=== PATIENT | female | born 1990 | race Caucasian/White ===

== ENCOUNTER 2020-09-19 09:30 | Outpatient (RCR) | payer OTHER, SELFPAY ==
--- NOTE | 2020-08-18 11:13 | PTOPEVAL ---
PHYSICAL THERAPY EVALUATION Thank you for referring Kaylee Concepcion to [facility].? Kaylee has a dx of ankylosing spondylitis and aquatic therapy ordered. The patient is scheduled to be seen for therapy? 2x/week for 4 weeks. Please review, sign, date and return this plan of care GIGI. I agree with and certify that the following plan of care is medically necessary. Referring Physician Date Attending Provider: Dr. Kindra Mata MD *PT Outpatient Evaluation Start: 08/18/20 08:44 Freq: Status: Active Protocol: Document 08/18/20 08:44 MLV (Rec: 08/18/20 09:46 MLV [id number]) Therapy Assessment Status Assessment Status Evaluation Evaluation Information Problem Onset diagnosed 04/2019 Cause none Additional Evaluation Detail back pain began before age 19 and had therapy with temporary relief then. The patient has declined with this diagnosis to the point of not being able to work or do many physical tasks. Subjective Information Patient wants to have a Query Text:As Reported By Patient/ decrease in pain so she can go Family out on occasion socially more often. The patient would like to go places with less need for using a w/c or motorized cart. Patient would like to tolerate sitting for longer periods for social outings. Patient completed Oswestry form- 66% disability score Prior Level of Function Activity Level (Last 3 Months) Occupation working on disability Hand Dominance Right Activity of Daily Living Ability Needs Some Help Indoor/Home Mobility Independent Community Mobility Independent Stairs Ability Independent Functional Cognition (Planning, Shopping Independent , Taking Medications) Cooking Yes Cleaning Yes Laundry Yes Shopping Yes Driving Yes Home Setting Home Type Apartment Environmental Barriers Stairs, None Living Situation With Significant Other [employer] Responsibilities Comment boyfriend assists with ADL's and housework approximately 50 % due to patient's physical issues Mobility Assistive Devices (Used Last 3 None,Cane M
--- NOTE | 2020-08-18 11:21 | PTOPEVAL ---
Thank you for referring Kaylee Concepcion to [facility].? The patient is scheduled to be seen for therapy? ____x/week for ___ weeks. Please review, sign, date and return this plan of care GIGI. I agree with and certify that the following plan of care is medically necessary. Referring Physician Date Admitting Provider: Attending Provider: PHYSICIAN NOT ON STAFF Referring Provider: *PT Outpatient Evaluation Start: 08/18/20 08:44 Freq: Status: Active Protocol: Document 08/18/20 08:44 [facility] (Rec: 08/18/20 09:46 MLV [id number]) Therapy Assessment Status Assessment Status Assessment Status Evaluation Outpatient Past Medical History Past Medical History Source of Past Medical History Patient Musculoskeletal History Hx Arthritis Yes: ankylosing spondilitis Hx Fibromyalgia Yes Hx Other Musculoskeletal Disorders Yes: required extensive treatment for spondylitis- chemo infusion Endocrine History Hx Other Endocrine Disorders Yes: hidradenitis suppurativa; causes open weaping wounds. No current wounds Psychosocial History Hx Anxiety Yes Hx Depression Yes Pain History Has Past Pain Affected Your Daily Life Yes: 10+ years History of Long-Term Prescription Pain Yes: off now due to insurance Medication Use (Opiates) issues Effective Methods of Pain Control meds, ibuprofen/Tylenol, heat, position changes, light stretching Evaluation Information Problem Onset diagnosed 04/2019 Cause none Additional Evaluation Detail back pain began before age 19 and had therapy with temporary relief then. The patient has declined with this diagnosis to the point of not being able to work or do many physical tasks. Subjective Information Patient wants to have a Query Text:As Reported By Patient/ decrease in pain so she can go Family out on occasion socially more often. The patient would like to go places with less need for using a w/c or motorized cart. Patient would like to tolerate sitting for longer periods for social outings. Patient completed Oswestry form- 66% disability score Prior Level of Function Activity Level (Last 3 Months) Occupation working
--- NOTE | 2020-09-19 09:56 | PTOPEVAL ---
PHYSICAL THERAPY DISCHARGE SUMMARY Thank you for referring Kaylee Concepcion to [facility].? The patient is discharged from PT this date after being seen for 8 visits of aquatic therapy. The goals are partially met and status for improvement has peaked. Please review, sign, date and return this plan of care GIGI. I agree with and certify that the following plan of care is medically necessary. Referring Physician Date Attending Provider: Kindra Mata MD *PT Outpatient Evaluation Start: 08/18/20 08:44 Freq: Status: Active Protocol: Document 09/19/20 09:30 MLV (Rec: 09/19/20 09:52 MLV [id number]) Assessment Status Discharge Pain Assessment Timing of Pain Assessment Timing of Pain Assessment Assessment Pain Scale Pain Scale Used Numeric (1 - 10) Self Report Pain Assessment Back Reported Pain Level 7 Pain Description Aching,Stabbing Pain Frequency Chronic Other Pain Aggravating Factors standing Pain Behaviors None Additional Pain Comments modified Oswestry score indicates pain increase: 72% Pain Score Pain Score 7: Self Report Interventions Used Interventions Used By Clinicians Aquatic Therapy,Education, Exercise Pain Relief Interventions Used By Exercise Patient Cervical and Lumbar ROM Cervical ROM Cervical Extension (0-70) 45 Query Text:Active in Degrees Cervical Rotation Right (0-90) 75 Query Text:Passive in Degrees Cervical Rotation Left (0-90) 75 Query Text:Active in Degrees Cervical ROM WNL Lumbar ROM Lumbar Flexion Active Knee Query Text:Hands to: Lumbar Extension (0-40) 25 Query Text:Active in Degrees Lumbar Lateral Flexion Right (0-40) 50 Query Text:Active in Degrees Lumbar Lateral Flexion Left (0-40) 50 Query Text:Active in Degrees Lateral Rotation Right (0-45) 30 Query Text:Active in Degrees Lateral Rotation Left (0-45) 30 Query Text:Active in Degrees Lower Extremity Range of Motion General Lower Extremity Range of Motion Limitations Soft Tissue Restriction Gross Lower Extremity Range of Motion danii. hip internal rotation 20 Comments degrees and notable stiffness with movement. Mild tightness danii. hamstrings at 80 degrees for 90/90 test. Danii. knees/ankles WFL's. Lower Extremity Muscle Strength Testing General Lower Extremity Strength Reason Not Measured WNL/Left,WNL/Right Gross Lower Extremity Strength minimal fatigue with 15 reps
== END 2020-09-20 10:04 | disposition home or self-care (01) ==
LOC: ANHPT 09:30
DX: M45.9 Ankylosing spondylitis of unspecified sites in spine (principal); M54.9 Dorsalgia, unspecified; G89.29 Other chronic pain; M25.50 Pain in unspecified joint; R53.81 Other malaise
CPT/HCPCS: 97110; 97113; 97161; 97530